=== PATIENT | female | born 1975 | race Caucasian/White ===

== ENCOUNTER 2021-11-30 19:16 | Emergency (ER) | payer SELFPAY ==
[~2021-11-30] VITALS: Ht 162 cm; Wt 68.0 kg
--- NOTE | 2021-11-30 20:21 | ED General ---
General Chief Complaint: General Problems/Pain Stated Complaint: VOMITTING, RAPID HR, POSSIBLE COVID Nursing Triage Note: PT AMB TO [facility] 9 WITH C/O GENERAL WEAKNESS, VOMITTING THE LAST COUPLE OF DAYS, INCREASED HR AT [facility]. PT TESTED POS 2 WEEKS AGO FOR COVID Source of Information: Patient (NIKAGIO GALVEZ) History of Present Illness Date Seen by Provider: Nov 30, 2021 Time Seen by Provider: 20:10 Initial Comments Pt is a 46 yo F who presents to the ED with fatigue, general malaise, and rapid heart rate. She states the symptoms have been present for several days. She was diagnosed with COVID 10 days ago. She presented to her PCP and [facility] where it was noted she had sinus tachycardia that worsened with exertion. This prompted them to send her here for further evaluation. Patient states she was having severe diarrhea up until 2 days ago. She states she was also having frequent emesis. She has had nausea today without any emesis. States she has been able to tolerate small sips of water but has not eaten anything. Modifying Factors: worse with Movement; improves with Rest Associated Systoms: No Cough, No Diaphoresis, No Fever/Chills; Malaise, Nausea/Vomiting; No Shortness of Air (GIO RODRIGUEZ APRN) Allergies and Home Medications Allergies Coded Allergies: No Known Drug Allergies (Unverified , 11/30/21) Patient Home Medication List Home Medication List Reviewed: Yes (GIO RODRIGUEZ APRN) Ondansetron (Ondansetron Odt) 4 Mg Tab.rapdis, 4 MG PO Q6H PRN for NAUSEA/VOMITING-1ST LINE Prescribed by: Gio Rodriguez on 11/30/212309 Potassium Chloride (Potassium Chloride) 10 Meq Tab.er.prt, 10 MEQ PO DAILY Prescribed by: Gio Rodriguez on 11/30/212309 Review of Systems Review of Systems Constitutional: malaise EENTM: see HPI Respiratory: no symptoms reported; No cough Cardiovascular: No chest pain; palpitations; No syncope Musculoskeletal: no symptoms reported Skin: no symptoms reported Psychiatric/Neurological: No Symptoms Reported (GIO RODRIGUEZ APRN) Past Yvvpelu-Izcghc-Pftyxc Hx Patient Social History Tobacco Use?: No Substance use?: No Alcohol Use?: No Pt feels they are or have been: No (GIO RODRIGUEZ APRN) Immunizations Up To Date Influenza Vaccine Up-to-Date: No; Not Current (GIO RODRIGUEZ APRN) Past Medical History Surgery/Hospitalization HX: HLD (GIO RODRIGUEZ APRN) Physical Exam Vital Signs Vital Signs - First Documented 11/30/21 12/01/21 20:01 01:18 Temp 36.7 Pulse 148 Resp 14 B/P (MAP) 129/102 (111) Pulse Ox 99 O2 Delivery Room Air (BETO,HUGO K DO) Vital Signs Capillary Refill : (GIO RODRIGUEZ APRN) Height, Weight, BMI Height: '" Weight: lbs. oz. kg; 25.00 BMI Method: General Appearance: No Apparent Distress, WD/WN HEENT: PERRL/EOMI, TMs Normal, Normal ENT Inspection, Pharynx Normal Neck: Full Range of Motion, Normal Inspection, Non Tender, Supple Respiratory: Chest Non Tender, Lungs Clear, Normal Breath Sounds, No Accessory Muscle Use, No Respiratory Distress Cardiovascular: No Edema, No Gallop, No JVD, No Murmur, Normal Peripheral Pulses, Tachycardia Gastrointestinal: Normal Bowel Sounds, No Organomegaly, No Pulsatile Mass, Non Tender, Soft Extremity: Normal Capillary Refill, Normal Inspection, Normal Range of Motion, Non Tender, No Calf Tenderness, No Pedal Edema Neurologic/Psychiatric: Alert, Oriented x3, No Motor/Sensory Deficits, Normal Mood/Affect Skin: Normal Color, Warm/Dry (GIO RODRIGUEZ APRN) Progress/Results/Core Measures Suspected Sepsis SIRS Temperature: Pulse: 148 Respiratory Rate: 14 Laboratory Tests 11/30/21 20:06: White Blood Count 9.8 Blood Pressure 129 /102 Mean: 111 Laboratory Tests 11/30/21 20:06: Creatinine 0.98, INR Comment 1.3, Platelet Count 398, Total Bilirubin 1.2H (GIO RODRIGUEZ APRN) Results/Orders Lab Results Laboratory Tests Test 11/30/21 20:06 11/30/21 22:08 Range/Units White Blood Count 9.8 4.3-11.0 10^3/uL Red Blood Count 5.35 H 3.80-5.11 10^6/uL Hemoglobin 16.0 11.5-16.0 g/dL Hematocrit 44 35-52 % Mean Corpuscular Volume 82 80-99 fL Mean Corpuscular Hemoglobin 30 25-34 pg Mean Corpuscular Hemoglobin Concent 36 32-36 g/dL Red Cell Distribution Width 13.3 10.0-14.5 % Platelet Count 398 130-400 10^3/uL Mean Platelet Volume 9.6 9.0-12.2 fL Immature Granulocyte % (Auto) 0 % Neutrophils (%) (Auto) 70 42-75 % Lymphocytes (%) (Auto) 20 12-44 % Monocytes (%) (Auto) 10 0-12 % Eosinophils (%) (Auto) 0 0-10 % Basophils (%) (Auto) 1 0-10 % Neutrophils # (Auto) 6.8 1.8-7.8 10^3/uL Lymphocytes # (Auto) 1.9 1.0-4.0 10^3/uL Monocytes # (Auto) 1.0 0.0-1.0 10^3/uL Eosinophils # (Auto) 0.0 0.0-0.3 10^3/uL Basophils # (Auto) 0.1 0.0-0.1 10^3/uL Immature Granulocyte # (Auto) 0.0 0.0-0.1 10^3/uL Prothrombin Time 16.2 H 12.2-14.7 SEC INR Comment 1.3 0.8-1.4 Activated Partial Thromboplast Time 28 24-35 SEC Sodium Level 141 135-145 MMOL/L Potassium Level 2.9 L 3.6-5.0 MMOL/L Chloride Level 106 98-107 MMOL/L Carbon Dioxide Level 17 L 21-32 MMOL/L Anion Gap 18 H 5-14 MMOL/L Blood Urea Nitrogen 12 7-18 MG/DL Creatinine 0.98 0.60-1.30 MG/DL Estimat Glomerular Filtration Rate 71 BUN/Creatinine Ratio 12 Glucose Level 126 H 70-105 MG/DL Calcium Level 9.9 8.5-10.1 MG/DL Corrected Calcium 8.5-10.1 MG/DL Magnesium Level 1.4 L 1.6-2.4 MG/DL Total Bilirubin 1.2 H 0.1-1.0 MG/DL Aspartate Amino Transf (AST/SGOT) 25 5-34 U/L Alanine Aminotransferase (ALT/SGPT) 33 0-55 U/L Alkaline Phosphatase 81 40-136 U/L Troponin I < 0.028 <0.028 NG/ML B-Type Natriuretic Peptide < 10.0 <100.0 PG/ML Total Protein 7.7 6.4-8.2 GM/DL Albumin 4.7 H 3.2-4.5 GM/DL Urine Color ORANGE Urine Clarity SL CLOUDY Urine pH 6.0 5-9 Urine Specific [place] >=1.030 1.016-1.022 Urine Protein 2+ H NEGATIVE Urine Glucose (UA) NEGATIVE NEGATIVE Urine Ketones 3+ H NEGATIVE Urine Nitrite NEGATIVE NEGATIVE Urine Bilirubin 2+ H NEGATIVE Urine Urobilinogen 1.0 < = 1.0 MG/DL Urine Leukocyte Esterase TRACE H NEGATIVE Urine RBC (Auto) 3+ H NEGATIVE Urine RBC TNTC H /HPF Urine WBC 10-25 H /HPF Urine Squamous Epithelial Cells 2-5 /HPF Urine Crystals NONE /LPF Urine Bacteria FEW H /HPF Urine Casts NONE /LPF Urine Mucus NEGATIVE /LPF Urine Culture Indicated YES (HUGO PÉREZ DO) Micro Results Microbiology 11/30/21 Urine Culture - Final, Complete Gram Pos Mixed Bacterial Leena (HUGO PÉREZ DO) My Orders Orders - HUGO PÉREZ DO Ed Iv/Invasive Line Start (11/30/21 23:51) Lactated Ringers (Lr 1000 Ml Iv Solution (12/01/21 00:00) (HUGO PÉREZ DO) Vital Signs/I&O 11/30/21 12/01/21 20:01 01:18 Temp 36.7 Pulse 148 103 Resp 14 18 B/P (MAP) 129/102 (111) 113/76 Pulse Ox 99 O2 Delivery Room Air (HUGO PÉREZ DO) Vital Signs/I&O Capillary Refill : (GIO RODRIGUEZ PYROMETER OPERATOR) Blood Pressure Mean: 111 Progress Note : Progress Note Patient is nontoxic on exam. She does have tacky mucus membranes. She is tachycardic without hypotension or hypoxia. HR is in the 110s at rest. She denies any SOB or chest pain. Endorses nausea without abdominal pain. Cardiopulmonary assessment is reassuring other than the tachycardia. Laboratory evaluation notable for mild hypokalemia. CBC is largely unremarkable. Chest xray nonacute. EKG without acute ischemic change or arrhythmia. She had some subjective improvement after the NS bolus. Her HR trended down and is closer to 100 at rest. There was no elevated in troponin or BNP. I feel this is likely tachycardia related to her relative dehydration and persistent COVID symptomology. Will d/c home with recs for supportive care and follow-up with PCP in 1-2 days for recheck. Return precautions for urgent symptomology discussed. Patient verbalized understanding. (GIO RODRIGUEZ APRN) ECG EKG : EKG Time: 20:47 Rate: 114 Rhythm: S.Tach Intervals: Normal (GIO RODRIGUEZ APRN) Departure Impression Primary Impression: Sinus tachycardia Additional Impressions: Nausea & vomiting Dehydration COVID-19 Hypokalemia Disposition: 01 HOME, SELF-CARE Condition: Improved Departure-Patient Inst. Decision time for Depature: 23:05 (GIO RODRIGUEZ APRN) Patient Instructions: Sinus Tachycardia (DC), Nausea and Vomiting, Adult, Hypokalemia (DC) Scripts Potassium Chloride (Potassium Chloride) 10 Meq Tab.er.prt 10 MEQ PO DAILY for 7 Days, #7 TAB Prov: GIO RODRIGUEZ APRN 11/30/21 Ondansetron (Ondansetron Odt) 4 Mg Tab.rapdis 4 MG PO Q6H PRN for NAUSEA/VOMITING-1ST LINE for 7 Days, #20 TAB Prov: GIO RODRIGUEZ APRN 11/30/21 ATTENDING PHYSICIAN NOTE: I WAS PHYSICALLY PRESENT ER PHYSICIAN, BUT I WAS NOT INVOLVED IN ANY DECISION MAKING OR ANY CARE OF THIS PATIENT, AND I AM NOT COLLABORATING PHYSICIAN. (HUGO PÉREZ DO) GIO RODRIGUEZ APRN Nov 30, 2021 20:21 HUGO PÉREZ DO Dec 03, 2021 18:01
[2021-11-30] MEDS ORDERED: NS IV 1000 ML 1,000 ML IV SCH (20:30)
[2021-11-30 20:31] LABS: BASOPHILS # (AUTO) 0.1 10^3/uL (0.0-0.1); BASOPHILS % (AUTO) 1 % (0-10); EOSINOPHILS % (AUTO) 0 % (0-10); HEMATOCRIT 44 % (35-52); LYMPHOCYTES # (AUTO) 1.9 10^3/uL (1.0-4.0); LYMPHOCYTES % (AUTO) 20 % (12-44); MEAN CORPUSCULAR HEMOGLOBIN 30 pg (25-34); MEAN CORPUSCULAR HGB CONC 36 g/dL (32-36); MEAN CORPUSCULAR VOLUME 82 fL (80-99); MEAN PLATELET VOLUME 9.6 fL (9.0-12.2); MONOCYTES % (AUTO) 10 % (0-12); NEUTROPHILS # (AUTO) 6.8 10^3/uL (1.8-7.8); NEUTROPHILS % (AUTO) 70 % (42-75); PLATELET COUNT 398 10^3/uL (130-400); WHITE BLOOD COUNT 9.8 10^3/uL (4.3-11.0)
[2021-11-30 20:43] LABS: INR 1.3 (0.8-1.4); PROTHROMBIN TIME PATIENT 16.2 SEC (12.2-14.7)
[2021-11-30 20:55] LABS: ALANINE AMINOTRANSFERASE 33 U/L (0-55); ALBUMIN 4.7 GM/DL (3.2-4.5); ALKALINE PHOSPHATASE 81 U/L (40-136); BILIRUBIN,TOTAL 1.2 MG/DL (0.1-1.0); BUN/CREATININE RATIO 12; CALCIUM 9.9 MG/DL (8.5-10.1); CARBON DIOXIDE 17 MMOL/L (21-32); CHLORIDE 106 MMOL/L (98-107); CREATININE SERUM 0.98 MG/DL (0.60-1.30); GFR ESTIMATED 71; GLUCOSE 126 MG/DL (70-105); MAGNESIUM 1.4 MG/DL (1.6-2.4); POTASSIUM 2.9 MMOL/L (3.6-5.0); SODIUM 141 MMOL/L (135-145); TOTAL PROTEIN 7.7 GM/DL (6.4-8.2)
[2021-11-30] MEDS ORDERED: ONDANSETRON 4 MG/2 ML (SDV) Z0FRAN IVP ONE (21:30)
[2021-11-30] MEDS ORDERED: KCL 20 MEQ TAB (K-DUR) PO ONE (21:30)
--- NOTE | 2021-11-30 21:33 | Diagnostic Imaging Report ---
INDICATION: Chest pain. EXAMINATION: Chest, 11/30/2021. FINDINGS: The cardiomediastinal silhouette is unremarkable. The pulmonary vasculature is within normal limits. The lungs and pleural spaces are clear. IMPRESSION: No evidence of an acute cardiopulmonary process. Dictated by: Dictated on workstation # [id number]
[2021-11-30 22:53] LABS: CLARITY,URINE SL CLOUDY; COLOR,URINE ORANGE; GLUCOSE, URINE (UA) NEGATIVE (NEGATIVE); KETONES,URINE 3+ (NEGATIVE); LEUKOCYTE ESTERASE ,URINE TRACE (NEGATIVE); NITRITE,URINE NEGATIVE (NEGATIVE); PROTEIN,URINE 2+ (NEGATIVE)
[2021-11-30 23:04] LABS: BACTERIA,URINE FEW /HPF; BILIRUBIN,URINE 2+ (NEGATIVE); RBC,URINE TNTC /HPF
[2021-11-30] MEDS ORDERED: POTA-177 PO (23:10)
[2021-11-30] MEDS ORDERED: ONDA4TAB11 PO (23:10)
[2021-12-01] MEDS ORDERED: LACTATED RINGERS 1,000 ML IV ONE
[2021-12-01 01:18] VITALS: BP 113/76
== END 2021-12-01 01:12 | disposition home or self-care (01) ==
LOC: EDUNIT# 19:16 → ER 19:20
DX: U07.1 COVID-19 (principal); E87.6 Hypokalemia; E86.0 Dehydration; R00.0 Tachycardia, unspecified; R11.2 Nausea with vomiting, unspecified; Z28.310 Unvaccinated for COVID-19; Z73.0 Burn-out
CPT/HCPCS: 36415; 71045; 80053; 81000; 83735; 83880; 84484; 85025; 85610; 85730; 87088; 93005; 93041